=== PATIENT | female | born 1960 | race Caucasian/White ===

== ENCOUNTER 2016-11-03 16:51 | Emergency (ER) | END 2016-11-03 17:49 | disposition home or self-care (01) | DX: I10 Essential (primary) hypertension (principal) ==

== ENCOUNTER 2017-03-25 16:56 | Emergency (ER) | END 2017-03-25 21:12 | disposition home or self-care (01) ==

== ENCOUNTER 2017-08-10 11:50 | Emergency (ER) | END 2017-08-10 15:07 | disposition home or self-care (01) ==

== ENCOUNTER 2017-09-28 22:16 | Emergency (ER) | END 2017-09-29 04:00 | disposition home or self-care (01) ==